=== PATIENT | female | born 1970 | race Caucasian/White ===

== ENCOUNTER → 2018-07-06 | Outpatient (CLI) | payer BC ==
--- NOTE | 2018-07-06 10:42 | RAD ---
Complete abdominal ultrasound 07/06/2018 8:00 AM Indication: Epigastric pain x3 weeks Technique: Multiple realtime grayscale sonographic images were obtained over the abdomen. Static images were submitted for interpretation. Comparisons: None available Findings: Visualized portions of the pancreas are grossly unremarkable. The pancreas is partially visualized. Visualized portions of the aorta and IVC are unremarkable. The gallbladder demonstrates no evidence of wall thickening, stones, or sludge. No pericholecystic fluid is seen. Sonographic Lorenzo sign is negative. Portal venous flows in the normal direction. There is a 1.6 cm echogenic mass in the right lobe of liver anteriorly. Liver is otherwise unremarkable in appearance. Background liver echogenicity is within normal limits. The right kidney is grossly normal in appearance measuring 11.1 cm in length. Left kidney is normal in appearance measuring 11.5 cm in length. No hydronephrosis nephrolithiasis or other focal renal lesion is seen. The spleen is unremarkable in appearance measuring 10.5 cm in length. Impression: 1.6 cm echogenic mass in the right lobe of the liver. Statistically this most likely represents a small hemangioma. However the ultrasound appearance is ultimately nonspecific. Consider further characterization with hepatic protocol MRI. Electronically signed by: Neno Overton MD (07/06/2018 10:39 AM) [id number]
== END | disposition home or self-care (01) ==
LOC: US 07:40
PROVIDERS: ATTEND Family Medicine
DX: R10.13 Epigastric pain (principal)
CPT/HCPCS: 76700

== ENCOUNTER 2018-10-23 20:06 | Emergency (ER) | payer BC ==
--- NOTE | 2018-10-23 20:44 | ED.ADGEN ---
Adult General Chief Complaint Chief Complaint ".. I think I got the flu.. and I am on my period.. and got diarrhea... and I am to go to [place] HPI HPI Patient is a 47 year old female t who presents with above hx and complaints of flu symptoms. Patient's had some nausea and vomiting. Patient also had had multiple episodes of watery diarrhea. Patient denies any intake of bad food. Patient denies any specific ill contacts. No history of exposure to C. difficile. Patient has had continued diarrhea since last night and 4 stools tonight. Patient feels she is getting dehydrated. Patient is concerned because she has a trip to [place] . Patient denies any history immunosuppression. Patient up-to-date with vaccinations. Patient does not report any fevers. No exposure to birds or reptiles. She is on city water. Review of Systems Review of Systems Constitutional: Denies fever or chills [] Eyes: Denies change in visual acuity, redness, or eye pain [] HENT: Denies nasal congestion or sore throat [] Respiratory: Denies cough or shortness of breath [] Cardiovascular: No additional information not addressed in HPI [] GI: Complaints of generalized abdominal pain, nausea, vomiting, and diarrhea [] : Denies dysuria or hematuria [] Musculoskeletal: Denies back pain or joint pain [] Integument: Denies rash or skin lesions [] Neurologic: Denies headache, focal weakness or sensory changes [] Endocrine: Denies polyuria or polydipsia [] All other systems were reviewed and found to be within normal limits, except as documented in this note. Family History Family History Noncontributory Current Medications Current Medications Current Medications Medications (Trade) Dose Ordered Sig/Bala Start Time Stop Time Status Last Admin Dose Admin Lactated Ringer's 1,000 ml @ 1,000 mls/hr 1X ONCE 10/23/18 21:15 10/23/18 22:14 DC 10/23/18 21:19 1,000 MLS/HR Allergies Allergies Allergies Coded Allergies Type Severity Reaction Last Updated Verified caffeine Allergy Intermediate 10/23/18 Yes gabapentin Allergy Intermediate 10/23/18 Yes hydrocodone Allergy Intermediate 10/23/18 Yes ibuprofen Allergy Intermediate 10/23/18 Yes epinephrine Adverse Reaction Intermediate 10/23/18 Yes Physical Exam Physical Exam Constitutional: Moderately acute distress, non-toxic appearance. [] HENT: Normocephalic, atraumatic, bilateral external ears normal, oropharynx dry , no oral exudates, nose normal. [] Eyes: PERRLA, EOMI, conjunctiva normal, no discharge. [] Neck: Normal range of motion, no tenderness, supple, no stridor. [] Cardiovascular:Heart rate regular rhythm, no murmur [] Lungs & Thorax: Bilateral breath sounds equal apex auscultation [] Abdomen: Bowel sounds hyperactive, soft, mild generalized tenderness, no masses , no pulsatile masses. No true rebound. Old scar Skin: Warm, dry, no erythema, no rash. [] Back: No tenderness, no CVA tenderness. [] Extremities: No tenderness, no cyanosis, no clubbing, ROM intact, no edema. [] No psoas sign. Neurologic: Alert and oriented X 3, normal motor function, normal sensory function, no focal deficits noted. [] Psychologic: Affect normal, judgement normal, mood normal. [] Current Patient Data Vital Signs Vital Signs Date Time Temp Pulse Resp B/P (MAP) Pulse Ox O2 Delivery O2 Flow Rate FiO2 10/23/18 22:00 84 18 116/70 (85) 99 Room Air 10/23/18 20:40 99.4 Lab Results Laboratory Tests Test 10/23/18 21:00 Influenza Type A (Rapid) Negative (NEGATIVE) Influenza Type B (Rapid) Negative (NEGATIVE) EKG EKG [] Radiology/Procedures Radiology/Procedures [] Course & Med Decision Making Course & Med Decision Making Pertinent Labs and Imaging studies reviewed. (See chart for details) Patient's symptoms improved with IV hydration. Patient take Zofran up to 4 times a day for nausea and vomiting. Patient return if any concerns. Patient take [id number] Tylenol . Patient return if any concerns.. [] Final Impression Final Impression 1. Viral syndrome[] 2. Gastroenteritis Dragon Disclaimer Dragon Disclaimer This electronic medical record was generated, in whole or in part, using a voice recognition dictation system. Discharge Summary Visit Information Final Diagnosis Problems Medical Problems: (1) Diarrhea Status: Acute (2) Viral syndrome Status: Acute Brief Hospital Course Allergies Allergies Coded Allergies Type Severity Reaction Last Updated Verified caffeine Allergy Intermediate 10/23/18 Yes gabapentin Allergy Intermediate 10/23/18 Yes hydrocodone Allergy Intermediate 10/23/18 Yes ibuprofen Allergy Intermediate 10/23/18 Yes epinephrine Adverse Reaction Intermediate 10/23/18 Yes Vital Signs Vital Signs Date Time Temp Pulse Resp B/P (MAP) Pulse Ox O2 Delivery O2 Flow Rate FiO2 10/23/18 22:00 84 18 116/70 (85) 99 Room Air 10/23/18 20:40 99.4 Lab Results Laboratory Tests Test 10/23/18 21:00 Influenza Type A (Rapid) Negative (NEGATIVE) Influenza Type B (Rapid) Negative (NEGATIVE) Brief Hospital Course Ms. Stephens is a 48 old female who presented with suspect viral gastroenteritis. Discharge Information Condition at Discharge: Improved, Stable Disposition/Orders: D/C to Home Dischare Medications Current Medications Lactated Ringer's 1,000 ml @ 1,000 mls/hr 1X ONCE IV Last administered on 06/03at 21:19; Admin Dose 1,000 MLS/HR; Start 10/23/18 at 21:15; Stop 10/23/18 at 22:14; Status DC Active Scripts Active Zofran (Ondansetron Hcl) 8 Mg Tablet 8 Mg PO QIDPRN PRN Dragon Disclaimer This chart was dictated in whole or in part using Voice Recognition software in a busy, high-work load, and often noisy Emergency Department environment. It may contain unintended and wholly unrecognized errors or omissions. NINA WILCOX MD Oct 23, 2018 20:44
[2018-10-23] MEDS: IV RINGERS SOLUTION,LACTATED 1,000 ML IV ONE (21:19)
[2018-10-23 21:33] LABS: INFLUENZA A PATIENT NEGATIVE (NEGATIVE); INFLUENZA B PATIENT NEGATIVE (NEGATIVE)
[2018-10-23 22:00] VITALS: BP 116/70
[2018-10-23] MEDS ORDERED: ONDA8TAB9 PO (22:21)
== END 2018-10-23 22:42 | disposition home or self-care (01) ==
LOC: ER 20:06
DX: K52.9 Noninfective gastroenteritis and colitis, unspecified (principal); B34.9 Viral infection, unspecified; Z88.5 Allergy status to narcotic agent; Z88.6 Allergy status to analgesic agent; Z88.8 Allergy status to other drugs, medicaments and biological substances
CPT/HCPCS: 87804; 96360; 99283; J7120